=== PATIENT | male | born 1995 | race Two or more races ===

== ENCOUNTER 2024-05-28 14:44 | Emergency (ER) | payer SELFPAY ==
[~2024-05-28] VITALS: Ht 167.6 cm; Wt 70.3 kg
[2024-05-28] MEDS ORDERED: SULF1TAB48 PO (15:59)
[2024-05-28 16:43] VITALS: BP 132/79; O2SAT 98
== END 2024-05-28 16:20 | disposition home or self-care (01) ==
LOC: ER 14:52
DX: L08.9 Local infection of the skin and subcutaneous tissue, unspecified (principal); Z59.00 Homelessness unspecified
CPT/HCPCS: A4606; A4663